=== PATIENT | female | born 1970 ===

== ENCOUNTER 2017-10-05 19:28 | Emergency (ER) | payer OTHER ==
[~2017-10-05] VITALS: Ht 162.6 cm; Wt 56.2 kg
[2017-10-05] MEDS ORDERED: CARV3.125 PO (20:36)
[2017-10-05] MEDS ORDERED: AMLO5 PO (20:36)
[2017-10-05] MEDS ORDERED: FLUO10 PO (20:37)
[2017-10-05] MEDS ORDERED: ASPI81CH PO (20:37)
[2017-10-05] MEDS ORDERED: TRAM50 PO (20:37)
[2017-10-05] MEDS ORDERED: MAGOXI400 PO (20:37)
[2017-10-05] MEDS ORDERED: Esgic Tablet1 EACH PO (20:37)
== END 2017-10-05 21:30 | disposition home or self-care (01) ==
LOC: ER 19:28
DX: S93.401A Sprain of unspecified ligament of right ankle, initial encounter (principal); I10 Essential (primary) hypertension; Z79.899 Other long term (current) drug therapy; Z79.82 Long term (current) use of aspirin; Z87.891 Personal history of nicotine dependence; W22.8XXA Striking against or struck by other objects, initial encounter
CPT/HCPCS: 73610; 73630; 99283